=== PATIENT | male | born 1985 | race Caucasian/White ===

== ENCOUNTER 2017-04-23 17:48 | Emergency (ER) | payer OTHER ==
[~2017-04-23] VITALS: Ht 193 cm; Wt 113.5 kg
[2017-04-23 17:53] VITALS: BP 133/76; PULSE 77; RESP 18; TEMP 99.9; O2SAT 98
--- NOTE | 2017-04-23 18:58 | RADRPT ---
EXAM DATE/TIME: 04/23/2017 18:32 [place] COMPARISON: No previous studies available for comparison. INDICATIONS : Pain from fall. MEDICAL HISTORY : None. SURGICAL HISTORY : None. ENCOUNTER: Initial ACUITY: 1 day PAIN SCORE: 5/10 LOCATION: Left shoulder. FINDINGS: There is abnormal separation of the chromic clavicular joint with the clavicle displaced approximatel y 6 mm cephalad. Osseous structures appear intact without evidence for acute bony fracture. Glenohume ral joint is maintained. The left lung is clear. CONCLUSION: 1. Left acromioclavicular joint dislocation, as above. Rocael Stanton MD on April 23, 2017 at 18:56 Board Certified Radiologist. This report was verified electronically.
[2017-04-23] MEDS ORDERED: NORC5TAB PO (21:36)
[2017-04-23] MEDS ORDERED: DICL75TA PO (21:36)
[2017-04-23] MEDS ORDERED: ACETAMINOPHEN/HYDROcodone 325 MG/5 MG TAB PO ONE (21:45)
--- NOTE | 2017-04-23 21:45 | PD ---
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 He states that he was running with the [employer] softball team when he tripped and fell onto his left shoulder. Patient had a audible crack and pop in his left shoulder. Since then he has had a deformity of his collarbone. He denies any numbness, tingling or weakness. No injury to his head, neck or back. Exacerbated by the fall. No alleviating factors. PFSH Past Medical History Medical History: Denies Significant Hx Diminished Hearing: No Tetanus Vaccination: < 5 Years Influenza Vaccination: No Past Surgical History Surgical History: No Previous Surgery Social History Alcohol Use: Yes Tobacco Use: Yes Substance Use: No Allergies-Medications (Allergen,Severity, Reaction): Coded Allergies: No Known Allergies (Unverified , 09/08/14) Reported Meds & Prescriptions Reported Meds & Active Scripts Active Warren (Hydrocodone-Acetaminophen) 5 Mg-325 Mg Tab 1 Tab PO Q6H PRN Diclofenac Sodium DR (Diclofenac Sodium) 75 Mg Tabdr 75 Mg PO BID Review of Systems Except as stated in HPI: all other systems reviewed are Neg Physical Exam Narrative GENERAL: Well-developed, well-nourished in no apparent distress. Nontoxic appearing. HEAD: Normocephalic, atraumatic. EYES: Pupils equal round and reactive. Extraocular motions intact. No scleral icterus. No injection or drainage. ENT: Nose clear. Throat without erythema, tonsillar hypertrophy or exudate. Uvula midline. Airway patent. NECK: Trachea midline. Supple, nontender, moves head freely. No central bony tenderness or spasm. CARDIOVASCULAR: Regular rate and rhythm without murmurs, gallops, or rubs. RESPIRATORY: Clear to auscultation. Breath sounds equal bilaterally. No wheezes , rales, or rhonchi. GASTROINTESTINAL: Abdomen soft, non-tender, nondistended. No hepato-splenomegaly , or palpable masses. No guarding. EXTREMITIES: No clubbing, cyanosis, or edema. Patient has tenderness and a deformity to the left AC joint. No pain in the proximal clavicle, left humerus , elbow, wrist, hand. He has intact median/ulnar/renal nerves. The right upper extremity as well as lower extremities are without localizing bony tenderness or deformity. BACK: Nontender without deformity. No flank tenderness. NEUROLOGICAL: Awake, alert and oriented x 3 .Cranial nerves grossly intact. Motor and sensory grossly within normal limits. Normal speech. Data Data Last Documented VS Vital Signs Date Time Temp Pulse Resp B/P (MAP) Pulse Ox O2 Delivery O2 Flow Rate FiO2 04/23/17 17:53 99.9 77 18 133/76 (95) 98 Room Air Orders Orders Shoulder, Complete (>2vws) (04/23/17 ) Acetamin-Hydrocod 325-5 Mg (Warren 5-325 (04/23/17 21:45) Splint Or Brace Apply/Monitor (04/23/17 21:34) Ed Discharge Order (04/23/17 21:34) Ice/Cold Pack (04/23/17 21:34) MDM Medical Decision Making Medical Screen Exam Complete: Yes Emergency Medical Condition: Yes Medical Record Reviewed: Yes Interpretation(s) Last 24 hours Impressions Shoulder X-Ray 04/23/17 0000 Signed Impressions: Service Date/Time: Sunday, April 23, 2017 18:32 - CONCLUSION: 1. Left acromioclavicular joint dislocation, as above. Rocael Stanton MD Differential Diagnosis MDM: High Differential diagnoses: Fracture, sprain, strain, dislocation, contusion, neurovascular injury Narrative Course Patient is given 2 Lortab 5 mg p.o. Icepack, and sling. X-ray reveals a third- degree AC separation. Diagnosis Primary Impression: Left third-degree AC separation Referrals: Simon Duque MD 1 week Patient Instructions: General Instructions Departure Forms: School Release, Please excuse from school until (free text option): No PE times1 month. Tests/Procedures Additional Instructions: Rest. Ice. Sling. Diclofenac. Lortab for severe pain. Follow-up with orthopedist within the next 3-7 days. Return to the ER if any problems. Med/Other Pt SpecificInfo: Prescription(s) given Scripts Hydrocodone-Acetaminophen (Warren) 5 Mg-325 Mg Tab 1 TAB PO Q6H Y for PAIN, #20 TAB 0 Refills Prov: Chintan Jewell MD 04/23/[address] (Diclofenac Sodium DR) 75 Mg Tabdr 75 MG PO BID, #30 TAB 0 Refills Prov: Chintan Jewell MD 04/23/17 Disposition: 01 DISCHARGE HOME Condition: Stable Luis Rivera Apr 23, 2017 21:45
== END 2017-04-23 22:05 | disposition home or self-care (01) ==
LOC: NEPD 17:48
DX: S43.102A Unspecified dislocation of left acromioclavicular joint, initial encounter (principal); W01.0XXA Fall on same level from slipping, tripping and stumbling without subsequent striking against object, initial encounter; Y93.02 Activity, running; Y92.219 Unspecified school as the place of occurrence of the external cause; Z72.0 Tobacco use
CPT/HCPCS: 73030; 99283